=== PATIENT | male | born 1955 | race African-American/Black ===

== ENCOUNTER 2017-11-10 00:05 | Emergency (ER) | payer BC ==
[~2017-11-10] VITALS: Ht 180.3 cm; Wt 73.0 kg
[~2017-11-10 00:05] MED LIST: LEVO500T89 PO; METR500T4 PO
[2017-11-10 08:00] VITALS: BP 127/77
[2017-11-10] MEDS ORDERED: ACETAMINOPHEN 325MG TABLET PO ONE (08:00)
== END 2017-11-10 09:54 | disposition home or self-care (01) ==
LOC: ER 00:05
DX: S09.93XA Unspecified injury of face, initial encounter (principal); Y08.89XA Assault by other specified means, initial encounter; Y93.89 Activity, other specified; Y92.89 Other specified places as the place of occurrence of the external cause; Y99.8 Other external cause status; Z98.890 Other specified postprocedural states
CPT/HCPCS: 70450; 70486; 99284; Z7610

== ENCOUNTER 2021-05-31 08:22 | Emergency (ER) | payer BC, MEDICAID ==
[~2021-05-31] VITALS: Ht 180.3 cm; Wt 82.0 kg
[~2021-05-31 08:22] MED LIST changes: +METR-167 PO; -METR500T4 PO
[2021-05-31] MEDS ORDERED: HYDROCODONE/ACETAMINOPHEN 5/325MG TABLET PO ONE (09:15)
[2021-05-31] MEDS ORDERED: HYDR-4001 MT (10:52)
[2021-05-31 11:02] VITALS: BP 148/79
== END 2021-05-31 11:03 | disposition home or self-care (01) ==
LOC: ER 08:39
DX: M54.31 Sciatica, right side (principal); Z79.899 Other long term (current) drug therapy
CPT/HCPCS: 99283